=== PATIENT | male | born 1950 | race Caucasian/White ===

== ENCOUNTER 2021-01-05 11:49 | Emergency (ER) | payer OTHER ==
[2021-01-05] MEDS ORDERED: Adenocard IV 6 MG/2 ML IV ONE ×4 (12:12→12:41)
[2021-01-05] MEDS ORDERED: Sodium Chloride 0.9% 500 ML 500 ML IV ONE ×2 (12:13→12:18)
[2021-01-05] MEDS ORDERED: Sodium Chloride 0.9% 1000 ML 0 ML ONE (12:13)
[2021-01-05] MEDS ORDERED: CARDIZEM DRIP 100 MG/100 ML D5W 100 ML IV ONE (12:27)
[2021-01-05] MEDS ORDERED: Cardizem IV 50 MG/10 ML IV ONE ×2 (12:28→12:42)
[2021-01-05] MEDS ORDERED: CARDIZEM DRIP 100 MG/100 ML D5W 100 ML IV PRN (12:41)
--- NOTE | 2021-01-05 12:57 | XRAY ---
Exam: AP upright portable chest film from 01/05/2021. Comparison: None. Indication: Complains of heart palpitations today. Findings: The transverse heart size appears within normal limits. EKG leads are seen in place. There is a device projected over the central aspect of the heart consistent with a cardiac valve replacement. Midline sternotomy is seen. An electronic monitoring device is seen projected over the left midlung field. Correlate clinically. The quinn and mediastinal structures appear unremarkable. The lungs are well inflated. No air space infiltrates, vascular congestion, pneumothorax, or pleural fluid is seen. The metallic monitoring device overlying left midlung field obscures visualization in this projection. Lateral osteophyte formation is seen within the mid and lower thoracic spine. No acute osseous process is seen. Impression: 1. Status post cardiac surgery with midline sternotomy and apparent cardiac valve replacement. Correlate with surgical history. 2. No acute cardiopulmonary disease is seen. 3. A relatively small metallic electronic monitoring device is seen overlying the left midlung field which partially obscures visualization of the central left midlung field.
[2021-01-05 13:00] LABS: ALBUMIN 4.4 g/dL (3.5-5.0); ALKALINE PHOSPHATASE 80 U/L (38-126); BLOOD UREA NITROGEN 10 mg/dL (9-20); CHLORIDE 106 mmol/L (98-107); Carbon Dioxide 27 mmol/L (22-30); Creatinine 1 0.81 mg/dL (0.66-1.25); EST GLOMERULAR FILTRATION RATE > 60.0 ML/MIN; Glucose 99 mg/dL (74-106); MAGNESIUM 2.3 mg/dL (1.6-2.3); NT PRO BNP 911 pg/mL (0-900); Potassium 4.7 mmol/L (3.5-5.1); SGOT/AST 31 U/L (17-59); SGPT/ALT 21 U/L (0-50); SODIUM 142 mmol/L (137-145); Total Protein 7.7 g/dL (6.3-8.2)
--- NOTE | 2021-01-05 13:02 | ERPHSYRPT ---
- History of Present Illness Time Seen by Provider: 01/05/21 12:06 Source: patient Exam Limitations: no limitations Patient Subjective Stated Complaint: Pt staes "I was in cardiac rehab and my heart rate went up to 160 and they sent me down here. Dr. Landaverde" Triage Nursing Assessment: Pt presented alert and oriented X 3, skin pwd. Pt ambulates with an upright steady gait, able to speak in clear full sentences. Pt resting comfortably on the bed. Physician History: 70 years old male with recent aortic valve replacements, history of atrial fibrillation on Eliquis currently at cardiac rehab is sent in here with his h eart rate in 160s. Patient report mild palpitations but no chest pain tightness pressure/discomfort or any shortness of breath. Denies recent fever chills or cough. Timing/Duration: hour(s) (1), constant, sudden Severity: moderate Modifying Factors: Improves With: nothing Associated Symptoms: denies symptoms Allergies/Adverse Reactions: lisinopril Allergy (Severe, Verified 01/05/21 12:08) Cough Home Medications: Apixaban [Eliquis] 5 mg PO DAILY 01/05/21 [History] Aspirin 81 gm Chew [Baby Aspirin 81 mg Chew] 81 mg PO DAILY 01/05/21 [History] Losartan Potassium [Cozaar] 100 mg PO DAILY 01/05/21 [History] Metoprolol Succinate 50 mg [Toprol Xl 50 MG] 50 mg PO DAILY 01/05/21 [History] Hx Tetanus, Diphtheria Vaccination/Date Given: No Hx Influenza Vaccination/Date Given: Yes Hx Pneumococcal Vaccination/Date Given: No Immunizations Up to Date: Yes Travel Risk - International Travel Have you traveled outside of the country in past 3 weeks: No - Coronavirus Screening Are you exhibiting any of the following symptoms?: No Close contact with a COVID-19 positive Pt in past 14-21 Days: No - Vaccine Status Have you recieved a Covid-19 vaccination: No - Review of Systems Constitutional: No Symptoms Eyes: No Symptoms Ears, Nose, & Throat: No Symptoms Respiratory: No Symptoms Cardiac: Palpitations Abdominal/Gastrointestinal: No Symptoms Genitourinary Symptoms: No Symptoms Musculoskeletal: No Symptoms Skin: No Symptoms Neurological: No Symptoms Psychological: No Symptoms Endocrine: No Symptoms Hematologic/Lymphatic: No Symptoms Immunological/Allergic: No Symptoms - Past Medical History Pertinent Past Medical History: Yes Neurological History: No Pertinent History ENT History: Other Cardiac History: Coronary Artery Disease, Other Respiratory History: No Pertinent History Endocrine Medical History: No Pertinent History Musculoskeletal History: No Pertinent History GI Medical History: No Pertinent History History: No Pertinent History Psycho-Social History: No Pertinent History Male Reproductive Disorders: No Pertinent History - Past Surgical History Past Surgical History: Yes Other Surgical History: aortic valve replacement. tracheotomy - Social History Smoking Status: Light tobacco smoker How long have you smoked: years Exposure to second hand smoke: No Drug Use: none Patient Lives Alone: No - Nursing Vital Signs Nursing Vital Signs: Initial Vital Signs Temperature 98.1 F 01/05/21 11:59 Pulse Rate 160 H 01/05/21 11:59 Respiratory Rate 20 01/05/21 11:59 Blood Pressure 160/104 01/05/21 11:59 O2 Sat by Pulse Oximetry 99 01/05/21 11:59 Pain Scale Pain Intensity 0 - Physical Exam General Appearance: no apparent distress, alert Eye Exam: PERRL/EOMI, eyes nml inspection Ears, Nose, Throat Exam: normal ENT inspection, pharynx normal Neck Exam: normal inspection, non-tender, supple, carotid bruit Respiratory Exam: normal breath sounds, lungs clear Cardiovascular Exam: normal heart sounds, tachycardia Gastrointestinal/Abdomen Exam: soft, normal bowel sounds Extremity Exam: normal inspection, normal range of motion Neurologic Exam: alert, oriented x 3, cooperative Skin Exam: normal color SpO2 Interpretation: normal SpO2: 96 O2 Delivery: Room Air - Course EKG Interpreted by Me: RATE (158, atrial flutter), NORMAL AXIS, NORMAL INTERVALS, Non-specific ST Changes Ordered Tests: Active Orders 24 hr Category Date Time Status CHEST 1 VIEW (PORTABLE) Stat Exams 01/05/21 12:07 Completed CBC W DIFF Stat Lab 01/05/21 12:16 Completed CMP Stat Lab 01/05/21 12:16 Completed MAGNESIUM Stat Lab 01/05/21 12:16 Completed NT PRO BNP Stat Lab 01/05/21 12:16 Completed TROPONIN Q3H Lab 01/05/21 12:16 Completed TROPONIN Q3H Lab 01/05/21 15:15 Ordered TROPONIN Q3H Lab 01/05/21 18:15 Ordered TROPONIN Q3H Lab 01/05/21 21:15 Ordered TROPONIN Q3H Lab 01/06/21 00:15 Ordered UA W/RFX UR CULTURE Stat Lab 01/05/21 13:41 Completed Medication Summary Generic Name Dose Route Start Last Admin Trade Name Aiden PRN Reason Stop Dose Admin Diltiazem HCl 100 mls @ 5 mls/hr 01/05/21 12:41 01/05/21 12:55 Cardizem Drip 100 Mg/100 Ml D5w IV 02/04/21 12:40 5 mg/hr .Q20H PRN 5 mls/hr HEART RATE/ A-FIB Administration Protocol 5 MG/HR Discontinued Medications Generic Name Dose Route Start Last Admin Trade Name Aiden PRN Reason Stop Dose Admin Adenosine 6 mg 01/05/21 12:12 01/05/21 12:17 Adenocard Iv 6 Mg/2 Ml IV 01/05/21 12:13 6 mg STAT ONE Administration Adenosine Confirm 01/05/21 12:13 Adenocard Iv 6 Mg/2 Ml Administered 01/05/21 12:14 Dose 6 mg IV .STK-MED ONE Adenosine Confirm 01/05/21 12:23 Adenocard Iv 6 Mg/2 Ml Administered 01/05/21 12:24 Dose 12 mg IV .STK-MED ONE Adenosine 12 mg 01/05/21 12:41 01/05/21 12:53 Adenocard Iv 6 Mg/2 Ml IV 01/05/21 12:42 12 mg STAT ONE Administration Diltiazem HCl Confirm 01/05/21 12:28 Cardizem Iv 50 Mg/10 Ml Administered 01/05/21 12:29 Dose 50 mg IV .STK-MED ONE Diltiazem HCl 10 mg 01/05/21 12:42 01/05/21 12:54 Cardizem Iv 50 Mg/10 Ml IV 01/05/21 12:43 10 mg STAT ONE Administration Sodium Chloride 500 mls @ 500 mls/hr 01/05/21 12:13 01/05/21 13:46 Sodium Chloride 0.9% 500 Ml IV 01/05/21 13:12 Infused .Q1H ONE Infusion Sodium Chloride Confirm 01/05/21 12:13 Sodium Chloride 0.9% 1000 Ml Administered 01/05/21 12:14 Dose 1,000 mls @ ud .ROUTE .STK-MED ONE Sodium Chloride Confirm 01/05/21 12:18 Sodium Chloride 0.9% 500 Ml Administered 01/05/21 12:19 Dose 500 mls @ ud IV .STK-MED ONE Diltiazem HCl Confirm 01/05/21 12:27 Cardizem Drip 100 Mg/100 Ml D5w Administered 01/05/21 12:28 Dose 100 mls @ ud IV .STK-MED ONE Lab/Rad Data: Laboratory Result Diagrams 01/05/21 12:16 01/05/21 12:16 Laboratory Results 01/05/21 01/05/21 01/05/21 Range/Units 13:41 12:16 12:16 WBC (4.0-10.5) K/mm3 RBC (4.1-5.6) M/mm3 Hgb (12.5-18.0) gm/dl Hct (42-50) % MCV (78-100) fl MCH (26-32) pg MCHC (32-36) g/dl RDW (11.5-14.0) % Plt Count (150-450) K/mm3 MPV (7.5-11.0) fl Gran % (36.0-66.0) % Eos # (Auto) (0-0.5) Absolute Lymphs (auto) (1.0-4.6) Absolute Monos (auto) (0.0-1.3) Lymphocytes % (24.0-44.0) % Monocytes % (0.0-12.0) % Eosinophils % (0.00-5.0) % Basophils % (0.0-0.4) % Absolute Granulocytes (1.4-6.9) Basophils # (0-0.4) Sodium 142 (137-145) mmol/L Potassium 4.7 (3.5-5.1) mmol/L Chloride 106 (98-107) mmol/L Carbon Dioxide 27 (22-30) mmol/L Anion Gap 14.0 (5-15) MEQ/L BUN 10 (9-20) mg/dL Creatinine 0.81 (0.66-1.25) mg/dL Estimated GFR > 60.0 ML/MIN Glucose 99 (74-106) mg/dL Calcium 9.0 (8.4-10.2) mg/dL Magnesium 2.3 (1.6-2.3) mg/dL Total Bilirubin 0.20 (0.2-1.3) mg/dL AST 31 (17-59) U/L ALT 21 (0-50) U/L Alkaline Phosphatase 80 (38-126) U/L Troponin I < 0.012 (0.000-0.034) ng/mL NT-Pro-B Natriuret Pep 911 H (0-900) pg/mL Serum Total Protein 7.7 (6.3-8.2) g/dL Albumin 4.4 (3.5-5.0) g/dL Urine Color YELLOW (YELLOW) Urine Appearance CLEAR (CLEAR) Urine pH 5.0 (5-6) Ur Specific Mckinney 1.011 (1.005-1.025) Urine Protein 100 (Negative) Urine Ketones NEGATIVE (NEGATIVE) Urine Blood NEGATIVE (0-5) Young/ul Urine Nitrite NEGATIVE (NEGATIVE) Urine Bilirubin NEGATIVE (NEGATIVE) Urine Urobilinogen NEGATIVE (0-1) mg/dL Ur Leukocyte Esterase NEGATIVE (NEGATIVE) Urine WBC (Auto) NONE (0-5) /HPF Urine RBC (Auto) NONE (0-2) /HPF Urine Mucus (Auto) SLIGHT (NEGATIVE) /HPF Urine Culture Reflexed NO (NO) Urine Glucose NEGATIVE (NEGATIVE) mg/dL 01/05/21 Range/Units 12:16 WBC 7.7 (4.0-10.5) K/mm3 RBC 4.52 (4.1-5.6) M/mm3 Hgb 12.5 (12.5-18.0) gm/dl Hct 39.7 L (42-50) % MCV 87.8 (78-100) fl MCH 27.7 (26-32) pg MCHC 31.5 L (32-36) g/dl RDW 15.0 H (11.5-14.0) % Plt Count 271 (150-450) K/mm3 MPV 9.7 (7.5-11.0) fl Gran % 58.5 (36.0-66.0) % Eos # (Auto) 0.27 (0-0.5) Absolute Lymphs (auto) 2.16 (1.0-4.6) Absolute Monos (auto) 0.71 (0.0-1.3) Lymphocytes % 27.9 (24.0-44.0) % Monocytes % 9.2 (0.0-12.0) % Eosinophils % 3.5 (0.00-5.0) % Basophils % 0.9 (0.0-0.4) % Absolute Granulocytes 4.53 (1.4-6.9) Basophils # 0.07 (0-0.4) Sodium (137-145) mmol/L Potassium (3.5-5.1) mmol/L Chloride (98-107) mmol/L Carbon Dioxide (22-30) mmol/L Anion Gap (5-15) MEQ/L BUN (9-20) mg/dL Creatinine (0.66-1.25) mg/dL Estimated GFR ML/MIN Glucose (74-106) mg/dL Calcium (8.4-10.2) mg/dL Magnesium (1.6-2.3) mg/dL Total Bilirubin (0.2-1.3) mg/dL AST (17-59) U/L ALT (0-50) U/L Alkaline Phosphatase (38-126) U/L Troponin I (0.000-0.034) ng/mL NT-Pro-B Natriuret Pep (0-900) pg/mL Serum Total Protein (6.3-8.2) g/dL Albumin (3.5-5.0) g/dL Urine Color (YELLOW) Urine Appearance (CLEAR) Urine pH (5-6) Ur Specific Mckinney (1.005-1.025) Urine Protein (Negative) Urine Ketones (NEGATIVE) Urine Blood (0-5) Young/ul Urine Nitrite (NEGATIVE) Urine Bilirubin (NEGATIVE) Urine Urobilinogen (0-1) mg/dL Ur Leukocyte Esterase (NEGATIVE) Urine WBC (Auto) (0-5) /HPF Urine RBC (Auto) (0-2) /HPF Urine Mucus (Auto) (NEGATIVE) /HPF Urine Culture Reflexed (NO) Urine Glucose (NEGATIVE) mg/dL - Progress Progress Note: 01/05/21 13:00 70 years old male presented in the ER from cardiac rehab with palpitations. Patient heart rate was in the 150s, regular, given adenosine 6 and then 12 which showed underlying atrial flutter, started on Cardizem drip. Chest x-ray negative. I have talked with Dr. Phelan and Isidro, reviewed history and current management, patient is accepted for transfer, will call with the bed. 01/05/21 14:36 Initial work-up is grossly negative with no acute electrolyte abnormality. Negative initial troponins. Patient heart rate improved in the low 100s with Cardizem. Patient is ready for transfer. Counseled pt/family regarding: lab results, diagnosis, rad results - Departure Departure Disposition: Transfer Clinical Impression: Atrial flutter with rapid ventricular response Condition: Stable Critical Care Time: Yes Critical Care Time(excluding separately billable procedures): Critical 30-74 mins Referrals: DEJAN DEUTSCH MD [Primary Care Provider] -
[2021-01-05 13:13] LABS: Absolute Neutrophil Ct (ANC) 4.53 (1.4-6.9); BASOPHIL % 0.9 % (0.0-0.4); Basophil (Absolute #) 0.07 (0-0.4); Eosinophil % 3.5 % (0.00-5.0); Eosinophil (Absolute #) 0.27 (0-0.5); Hematocrit 39.7 % (42-50); Hemoglobin 12.5 gm/dl (12.5-18.0); Lymphocyte (Absolute #) 2.16 (1.0-4.6); Lymphocytes % 27.9 % (24.0-44.0); Mean Cell Volume 87.8 fl (78-100); Mean Corpuscular Hemoglobin 27.7 pg (26-32); Mean Corpuscular Hgb Concent. 31.5 g/dl (32-36); Mean Platelet Volume 9.7 fl (7.5-11.0); Monocyte (Absolute #) 0.71 (0.0-1.3); Monocytes % 9.2 % (0.0-12.0); Neutrophil % 58.5 % (36.0-66.0); Platelet Count 271 K/mm3 (150-450); Red Blood Count 4.52 M/mm3 (4.1-5.6); White Blood Count 7.7 K/mm3 (4.0-10.5)
[2021-01-05 14:13] LABS: Appearance CLEAR (CLEAR); Bilirubin NEGATIVE (NEGATIVE); Blood NEGATIVE Ery/ul (0-5); Glucose NEGATIVE (NEGATIVE); Ketones NEGATIVE (NEGATIVE); Leukocyte Esterase NEGATIVE (NEGATIVE); Mucus SLIGHT /HPF (NEGATIVE); Nitrite NEGATIVE (NEGATIVE); Protein,Urine Dip 100 (Negative); Specific Gravity 1.011 (1.005-1.025); Urobilinogen NEGATIVE mg/dL (0-1)
[2021-01-05 15:05] VITALS: O2SAT 98
[2021-01-05 18:35] VITALS: BP 133/75; PULSE 80
== END 2021-01-05 19:06 | disposition short-term general hospital (02) ==
LOC: ED 11:49
DX: I48.92 Unspecified atrial flutter (principal); Z79.01 Long term (current) use of anticoagulants; Z79.899 Other long term (current) drug therapy
CPT/HCPCS: 36415; 71045; 80053; 81001; 83735; 83880; 84484; 85025; 96365; 96374; 96375; 96376; 99285; 99291; J0153

== ENCOUNTER 2025-05-10 13:50 | Emergency (ER) | payer MEDICARE ==
[2025-05-10 14:17] VITALS: BP 154/84; TEMP 97.5; O2SAT 98
[2025-05-10] MEDS ORDERED: CLEOCIN 150 MG CAPSULE ONE (14:26)
[2025-05-10] MEDS: CLEOCIN 150 MG CAPSULE PO ONE (14:27)
--- NOTE | 2025-05-10 14:28 | ERPHSYRPT ---
- History of Present Illness Time Seen by Provider: 05/10/25 13:54 Source: patient Exam Limitations: no limitations Patient Subjective Stated Complaint: patient presents to ed with complaints of left sided jaw swelling after taking amox-clav 875mg-125mg Triage Nursing Assessment: patient presents to ed via private vehicle, patient able to ambulate into ed without complication, patient alert and oriented x 4, skin pwd, patient has swelling noted to left jaw, patient denies shortness of breath, scratchy throat, and trouble swallowing, oxygen saturation wnl on room air Physician History: 75-year-old male presents to the emergency room complaining of swelling to his lower face patient reports he was seen recently for a dental infection was prescribed Augmentin patient reports today minimal improvement he reports he is okay to breathe he denies any trouble swallowing is able to eat he has not seen his dentist because he was over the weekend denies any fevers denies any chest pain shortness of breath patient reports has had prior history of infective conjunctivitis and is worried about not being on the right antibiotics patient is now in ED for further eval Timing/Duration: yesterday Allergies/Adverse Reactions: lisinopril Allergy (Severe, Verified 05/10/25 14:17) Cough Home Medications: Apixaban [Eliquis] 5 mg PO DAILY 01/05/21 [History] Aspirin 81 gm Chew [Baby Aspirin 81 mg Chew] 81 mg PO DAILY 01/05/21 [History] Losartan Potassium [Cozaar] 100 mg PO DAILY 01/05/21 [History] Metoprolol Succinate 50 mg [Toprol Xl 50 MG] 50 mg PO DAILY 01/05/21 [History] Rosuvastatin Calcium 20 mg PO DAILY 05/10/25 [History] Sotalol HCl 80 mg [Betapace 80 MG] 80 mg PO DAILY 05/10/25 [History] Hx Tetanus, Diphtheria Vaccination/Date Given: Yes Hx Influenza Vaccination/Date Given: No Hx Pneumococcal Vaccination/Date Given: No Travel Risk - International Travel Have you traveled outside of the country in past 3 weeks: No - Emerging Infectious Disease Are you exhibiting symptoms associated with any current EIDs: No - Review of Systems Constitutional: No Fever, No Chills Eyes: No Symptoms Ears, Nose, & Throat: No Symptoms, Loose Teeth, Other (Dental swelling) Respiratory: No Cough, No Dyspnea Cardiac: No Chest Pain, No Edema, No Syncope Abdominal/Gastrointestinal: No Abdominal Pain, No Nausea, No Vomiting, No Diarrhea Genitourinary Symptoms: No Dysuria Musculoskeletal: No Back Pain, No Neck Pain Skin: No Rash Neurological: No Dizziness, No Focal Weakness, No Sensory Changes Psychological: No Symptoms Endocrine: No Symptoms All Other Systems: Reviewed and Negative - Past Medical History Pertinent Past Medical History: Yes Neurological History: No Pertinent History ENT History: Other Cardiac History: Coronary Artery Disease, Other Respiratory History: No Pertinent History Endocrine Medical History: No Pertinent History Musculoskeletal History: No Pertinent History GI Medical History: No Pertinent History History: No Pertinent History Psycho-Social History: No Pertinent History Male Reproductive Disorders: No Pertinent History - Past Surgical History Past Surgical History: Yes Other Surgical History: aortic valve replacement. tracheotomy - Social History Smoking Status: Current every day smoker Exposure to second hand smoke: Yes Drug Use: none - Social Determinants of Health Will the patient participate in the screening: Yes Do you worry about a steady place to live?: No Do you have any problems with any of the following?: No known problems In the past 12 months,have you had to go without utilities?: No Transportation Issues: No Has anyone in your support network made you feel unsafe?: No Have you or anyone in your house had to go w/o enough food: No - Nursing Vital Signs Nursing Vital Signs: Initial Vital Signs Temperature 97.5 F 05/10/25 13:51 Pulse Rate 110 H 05/10/25 13:51 Respiratory Rate 22 05/10/25 13:51 Blood Pressure 154/84 05/10/25 13:51 O2 Sat by Pulse Oximetry 98 05/10/25 13:51 Pain Scale Pain Intensity 0 - Physical Exam General Appearance: no apparent distress, alert Eye Exam: PERRL/EOMI, eyes nml inspection Ears, Nose, Throat Exam: TMs normal, pharynx normal, moist mucous membranes, other (Patient has a dental abscess to the left face) Neck Exam: normal inspection, non-tender, supple, full range of motion Respiratory Exam: normal breath sounds, lungs clear, No respiratory distress Cardiovascular Exam: regular rate/rhythm, normal heart sounds, normal peripheral pulses Gastrointestinal/Abdomen Exam: soft, normal bowel sounds, No tenderness, No mass Back Exam: normal inspection, normal range of motion, No CVA tenderness, No vertebral tenderness Extremity Exam: normal inspection, normal range of motion, pelvis stable Neurologic Exam: alert, oriented x 3, cooperative, normal mood/affect, nml cer ebellar function, nml station & gait, sensation nml, No motor deficits Skin Exam: normal color, warm, dry, No rash Lymphatic Exam: No adenopathy SpO2: 98 - Progress Progress Note: 05/10/25 14:24 There is concern for dental caries with dental infection with a dental abscess patient be given clindamycin Forner 50 mg p.o. will be prescribed chlorhexidine mouthwash as well as clindamycin recommend dental follow-up in the next 24 to 48 hours patient reports he is able to see his dentist on Sunday patient at this time - Departure Departure Disposition: Home Clinical Impression: Dental abscess Condition: Stable Critical Care Time: No Referrals: DEJAN DEUTSCH MD [Primary Care Provider, INTERNAL MEDICINE] - Follow up/PCP as directed Instructions: Dental abscess, Toothache, Dental pain - ED discharge instructions, Dental abscess - ED discharge instructions Prescriptions: Chlorhexidine Gluconate 15 ml PO BID #473 ml clindamycin HCL [Cleocin HCl] 450 mg PO Q8H 7 Days #21 cap
[2025-05-10 14:30] VITALS: PULSE 80; RESP 18
== END 2025-05-10 13:56 | disposition home or self-care (01) ==
LOC: ED 13:50
DX: K04.7 Periapical abscess without sinus (principal); Z79.01 Long term (current) use of anticoagulants; Z79.899 Other long term (current) drug therapy; Z72.0 Tobacco use